=== PATIENT | male | born 1985 | race Caucasian/White ===

== ENCOUNTER 2017-08-07 11:03 | Emergency (ER) | payer OTHER ==
--- NOTE | 2017-08-07 13:09 | RAD ---
Indication: Right hand injury and pain. 4 views of the right hand demonstrates no fracture. No other bone or joint abnormality is identified. IMPRESSION: No fracture of the right hand is noted.
[2017-08-07] MEDS ORDERED: Ibuprofen TAB* 600 MG PO ONE (13:11)
--- NOTE | 2017-08-07 13:20 | ED ---
Upper Extremity Pain - HPI Summary HPI Summary: 32 male presents to ED with complaints of right hand pain after an injury and hitting hit while working on his car yesterday 08/06/17. States the wrench slipped and his hand forcefully hit another steel car part. States his forth MCP joint has been sore, swollen, bruised and is uncomfortable to use since. Denies numbness/tingling. Denies pain anywhere else. States he is able to move 4th digit at PIP and DIP joints without discomfort it is just flexion of MCP joint that causes pain. No other complaints. Is right hand dominant. Took ibuprofen that helps with swelling. Last took ibuprofen yesterday. No PMHx. - History of Current Complaint Chief Complaint: EDExtremityUpper Stated Complaint: RIGHT HAND PAIN Time Seen by Provider: 08/07/17 12:16 Hx Obtained From: Patient Mechanism Of Injury: Blunt Trauma Onset/Duration: Started Days Ago - yesterday, Traumatic, Still Present Timing: Constant Severity Initially: Mild Severity Currently: Mild Pain Location: Hand - posterior hand 4th MCP joint Character: Aching Aggravating Factor(s): Movement Alleviating Factor(s): Rest, Ice, OTC Meds Associated Signs & Symptoms: Positive: Swelling, Bruising. Negative: Weakness, Numbness/Tingling Related History: Dominant Hand Right - Allergies/Home Medications Allergies/Adverse Reactions: Allergies Allergy/AdvReac Type Severity Reaction Status Date / Time Penicillins Allergy Hives/Diff. Verified 01/18/15 10:14 Breathing/I tching PMH/Surg Hx/FS Hx/Imm Hx Endocrine/Hematology History: Denies: Hx Diabetes Cardiovascular History: Denies: Hx Hypertension Respiratory History: Denies: Hx Asthma - Surgical History Surgery Procedure, Year, and Place: n/a - Immunization History Immunizations Up to Date: Yes Infectious Disease History: No Infectious Disease History: Denies: Traveled Outside the [place] in Last 30 Days - Family History Known Family History: Positive: None - Social History Alcohol Use: None Substance Use Type: Reports: None Smoking Status (MU): Heavy Every Day Tobacco Smoker Review of Systems Constitutional: Negative Cardiovascular: Negative Respiratory: Negative Positive: Arthralgia, Myalgia, Decreased ROM, Edema - right hand Positive: Bruising - right hand Neurological: Negative All Other Systems Reviewed And Are Negative: Yes Physical Exam Triage Information Reviewed: Yes Vital Signs On Initial Exam: Initial Vitals Temp Pulse Resp BP Pulse Ox 99.1 F 79 18 120/99 98 08/07/17 11:05 08/07/17 11:05 08/07/17 11:05 08/07/17 11:05 08/07/17 11:05 Vital Signs Reviewed: Yes Appearance: Positive: Well-Appearing, No Pain Distress, Well-Nourished Skin: Positive: Warm, Skin Color Reflects Adequate Perfusion, Dry, Other - mild ecchymosis and edema to right posterior hand at MCP joint, appears to be a contusion. Negative: Cold, Cyanosis @, Pale Head/Face: Positive: Normal Head/Face Inspection Respiratory/Lung Sounds: Positive: Clear to Auscultation, Breath Sounds Present. Negative: Rales, Rhonchi, Wheezes Cardiovascular: Positive: Normal, RRR, Pulses are Symmetrical in both Upper and Lower Extremities - 2+. Negative: Murmur, Rub Musculoskeletal: Positive: Limited @ - with flexion of MCP joint 4th digit on right hand due to pain, is able and better with passive ROM however. rest of MSK exam of entire right hand and system normal, Pain @ - with palpation of right 4th MCP joint and with movement, Edema Right - 4th MCP joint, right. Negative: Interruption @, Abnormal @ Neurological: Positive: Normal, Sensory/Motor Intact, Alert, Oriented to Person Place, Time, Reflexes Intact, NV Bundle Intact Distally - [place] Coma Scale Coma Scale Total: 15 Diagnostics - Vital Signs Vital Signs Temp Pulse Resp BP Pulse Ox 08/07/17 11:05 99.1 F 79 18 120/99 98 - Laboratory Lab Statement: Any lab studies that have been ordered have been reviewed, and results considered in the medical decision making process. - Radiology right hand Xray Interpretation: No Acute Changes - NO ACUTE INTRACRANIAL PATHOLOGY. CHRONIC SMALL VESSEL ISCHEMIC CHANGES Radiology Interpretation Completed By: Radiologist - and myself Course/Dx - Course Course Of Treatment: given ibuprofen while in ED. xrays obtained and negative for fracture. appears to be a contusion/sprain. kyleigh wrap applied. continue NSAIDs, rest and ice. elevate and kyleigh bandage. aware of worsening signs/ symptoms. no other concerns at this time. follow up pcp. - Diagnoses Differential Diagnosis/HQI/PQRI: Positive: Contusion, Fracture (Closed), Hematoma, Strain, Sprain Provider Diagnoses: Contusion of right hand, Sprain of metacarpophalangeal (MCP) joint of right ring finger Discharge - Discharge Plan Condition: Stable Disposition: HOME Prescriptions: Naproxen TAB* [Naprosyn 375 mg TAB*] 375 mg PO BID #20 tab Patient Education Materials: Sprain (ED), Contusion in Adults (ED) Referrals: Alin Cannon MD [Primary Care Provider] - Additional Instructions: Take prescribed medication as directed to help with pain and inflammation, as needed while symptoms persist. Take medication with food and only as needed. Apply ice and elevate hand to reduce swelling. Rest hand and wear kyleigh bandage for support and compression. Avoid use until symptoms improve and use pain as your guide. Any new or worsening symptoms please seek medical attention promptly. Follow up with PCP.
[2017-08-07 13:45] VITALS: BP 124/78
== END 2017-08-07 13:43 | disposition home or self-care (01) ==
LOC: ED 11:03
DX: S60.221A Contusion of right hand, initial encounter (principal); S63.654A Sprain of metacarpophalangeal joint of right ring finger, initial encounter; W22.8XXA Striking against or struck by other objects, initial encounter; Y93.89 Activity, other specified; Y92.9 Unspecified place or not applicable; Z88.0 Allergy status to penicillin
CPT/HCPCS: 99282; A9270-GY

== ENCOUNTER 2017-11-22 08:19 | Emergency (ER) | payer OTHER ==
--- NOTE | 2017-11-22 09:15 | RAD ---
INDICATION: Cough COMPARISON: October 13, 2013 TECHNIQUE: PA and lateral dual-energy views were obtained. FINDINGS: Bones/Soft Tissues: There are no acute bony findings. Cardiomediastinal: The cardiomediastinal silhouette is normal. Lungs: There is minor bibasilar interstitial change consistent with a pneumonitis. This is new relative to the remote study. Pleura: There are no pleural effusions. Other: None IMPRESSION: BIBASILAR INTERSTITIAL CHANGE CONSISTENT WITH PNEUMONITIS. SUGGEST FOLLOW-UP.
[2017-11-22 10:32] VITALS: BP 151/81
--- NOTE | 2017-11-22 15:03 | ED ---
Seamus Lewis Stephanie, scribed for Carson Hooper MD on 11/22/17 at 0849 . HPI Febrile Illness - HPI Summary HPI Summary: The pt is a 32 y/o M presenting to the ED with c/o fever that began on 11/15/17. The pt states his fever reached 101.4 F last night and he took an Advil to reduce his fever. Symptoms include productive cough with yellow/green phlegm ( began on 11/19/17) and nasal congestion. The pt denies sinus pain. He states he has had recent exposure to bronchitis from his girlfriend and children. - History of Current Complaint Chief Complaint: EDFever Time Seen by Provider: 11/22/17 08:36 Hx Obtained From: Patient Onset/Duration: Started Days Ago, Resolved Timing: Constant Current Severity: None Pain Intensity: 0 Pain Scale Used: 0-10 Numeric Aggravating Factors: Nothing Alleviating Factors: Nothing Associated Signs and Symptoms: Cough, Other: - nasal congestion - Allergy/Home Medications Allergies/Adverse Reactions: Allergies Allergy/AdvReac Type Severity Reaction Status Date / Time Penicillins Allergy Rash And Verified 11/22/17 08:22 Itching PMH/Surg Hx/FS Hx/Imm Hx Endocrine/Hematology History: Denies: Hx Diabetes Cardiovascular History: Denies: Hx Hypertension Respiratory History: Denies: Hx Asthma Sensory History: Denies: Hx Legally Blind EENT History: Denies: Hx Deafness - Surgical History Surgery Procedure, Year, and Place: NONE Infectious Disease History: Yes Infectious Disease History: Denies: Traveled Outside the [place] in Last 30 Days - Family History Known Family History: Positive: Unknown - The pt denies all fhx. Negative: Renal Disease - Social History Occupation: Employed Part-time Lives: Alone Alcohol Use: None Hx Substance Use: No Substance Use Type: Reports: None Hx Tobacco Use: Yes Smoking Status (MU): Heavy Every Day Tobacco Smoker Have You Smoked in the Last Year: Yes Review of Systems Positive: Fever ENT: Negative - sinus pain Positive: Other - nasal congestion Positive: Cough All Other Systems Reviewed And Are Negative: Yes Physical Exam - Summary Physical Exam Summary: Appearance: The patient is well-nourished in no acute distress and in no acute pain. Skin: The skin is warm and dry and skin color reflects adequate perfusion. HEENT: The head is normocephalic and atraumatic. The pupils are equal and reactive. The conjunctivae are clear and without drainage. Nares are patent and without drainage. Mouth reveals moist mucous membranes and the throat is without erythema and exudate. The external ears are intact. The ear canals are patent and without drainage. The tympanic membranes are intact. Neck: the neck is supple with full range of motion and non-tender. There are no carotid bruits. There is no neck vein distension. Respiratory: Chest is non-tender. Lungs are clear to auscultation and breath sounds are symmetrical and equal. Cardiovascular: Heart is regular rate and rhythm. There is no murmur or rub auscultated. There is no peripheral edema and pulses are symmetrical and equal. Abdomen: The abdomen is soft and non-tender. There are normal bowel sounds heard in all four quadrants and there is no organomegaly palpated. Musculoskeletal: There is no back tenderness noted. Extremities are non-tender with full range of motion. There is good capillary refill. There is no peripheral edema or calf tenderness elicited. Neurological: Patient is alert and oriented to person, place and time. The patient has symmetrical motor strength in all four extremities. Cranial nerves are grossly intact. Deep tendon reflexes are symmetrical and equal in all four extremities. Psychiatric: The patient has an appropriate affect and does not exhibit any anxiety or depression. Triage Information Reviewed: Yes Vital Signs On Initial Exam: Initial Vitals Temp Pulse Resp BP Pulse Ox 98.5 F 95 16 123/87 98 11/22/17 08:22 11/22/17 08:22 11/22/17 08:22 11/22/17 08:22 11/22/17 08:22 Vital Signs Reviewed: Yes Diagnostics - Vital Signs Vital Signs Temp Pulse Resp BP Pulse Ox 11/22/17 08:22 98.5 F 95 16 123/87 98 - Laboratory Lab Results: Lab Results 11/22/17 Range/Units 10:31 Influenza A (Rapid) Negative (Negative) Influenza B (Rapid) Negative (Negative) Lab Statement: Any lab studies that have been ordered have been reviewed, and results considered in the medical decision making process. - Radiology CXR Radiology Interpretation Completed By: Radiologist - BIBASILAR INTERSTITIAL CHANGE CONSISTENT WITH PNEUMONITIS. SUGGEST FOLLOW-UP. ED physician has reviewed this report. Re-Evaluation - Re-Evaluation First Eval Re-Evaluation Time: 11:20 Change: Unchanged - ED physician discussed plan of discharge with the pt and the pt agrees and understands. Course/Dx - Course Course Of Treatment: Mr. Lim presented with a productive cough and fever by history. Influenza was negative and CXR showed a pneumonitis and I will cover him with a Z-pack. - Diagnoses Provider Diagnoses: Bronchitis Discharge - Sign-Out/Discharge Documenting (check all that apply): Discharge/Admit/Transfer - discharge - Discharge Plan Condition: Stable Disposition: HOME Prescriptions: Azithromycin TAB* [Zithromax TAB (Z-SHARA) 250 mg #6 tabs] 2 tab PO .TODAY, THEN 1 DAILY #1 shara Patient Education Materials: Acute Bronchitis (ED) Referrals: Alin Cannon MD [Primary Care Provider] - 2 Days Additional Instructions: Return to the ED for any new or worsening symptoms. - Billing Disposition and Condition Condition: STABLE Disposition: HOME The documentation as recorded by the Seamus cisneros Stephanie accurately reflects the service I personally performed and the decisions made by me, Carson Hooper MD.
== END 2017-11-22 11:30 | disposition home or self-care (01) ==
LOC: ED 08:19
DX: J40 Bronchitis, not specified as acute or chronic (principal); Z72.0 Tobacco use; Z88.0 Allergy status to penicillin
CPT/HCPCS: 71046; 87502; 99282